=== PATIENT | female | born 1985 | race Caucasian/White ===

== ENCOUNTER 2017-03-30 06:36 | Day surgery (SDC) | payer MEDICAID ==
[~2017-03-30 06:36] MED LIST: ACETAMINOPHEN 1,000 MG/100 ML BTL IV ONE; FAMOTIDINE 20MG TABLET PO ONE; MECLIZINE 25 MG TABLET PO ONE; METOCLOPRAMIDE 10 MG TABLET PO ONE
[2017-03-30] MEDS ORDERED: KETOROLAC 30 MG/ML VIAL IVP ONE (14:27)
[2017-03-30] MEDS ORDERED: LIDOCAINE 2% MDV (20MG/ML) 20ML VIAL IV ONE (14:27)
[2017-03-30] MEDS ORDERED: HYDROCODONE/APAP 7.5/325MG TABLET PO ONE (14:27)
[2017-03-30] MEDS ORDERED: PROPOFOL 10 MG/ML VIAL IV ONE (14:27)
[2017-03-30] MEDS ORDERED: SEVOFLURANE 250 ML INH ONE (14:27)
[2017-03-30] MEDS ORDERED: HYDROMORPHONE HCL 2 MG/ML VIAL IV ONE (14:27)
--- NOTE | 2017-04-04 14:10 | Operative Note ---
DATE OF SURGERY: 03/30/2017 Surgeon: Da Vigil DO PREOPERATIVE DIAGNOSIS: Carpal tunnel syndrome of the right wrist. POSTOPERATIVE DIAGNOSIS: Carpal tunnel syndrome of the right wrist. OPERATION: Decompression of the right median nerve at the wrist using 3.5 loop magnification. DESCRIPTION OF PROCEDURE: This 31-year-old female was taken to the operating room, placed in the supine position on the operating room table where general anesthesia was induced. The right upper extremity was then elevated. It was prepped with Hibiclens and draped in the usual sterile fashion. Exsanguinated and the tourniquet inflated to 250 mmHg. A palmar incision was utilized following the hypothenar crease from the level of the base of the webspace of the thumb to the flexor crease of the wrist. Dissection carried down through the skin and subcutaneous tissue. Hemostasis was obtained with the electrocautery. The palmar fascia divided in line with the skin incision. The flexor retinaculum identified. There was a puncture and then split to its proximal margin. With the contents of the carpal tunnel under direct vision, the transverse carpal ligament was transected along its ulnar border and the radial flap was raised to expose the entire median nerve under the transverse carpal ligament. Recurrent motor branch of the median nerve was identified and found to be intact. Grossly, the nerve itself looked normal. The wound was irrigated. The tourniquet released. Hemostasis obtained with the electrocautery. The wound closed with interrupted 6-0 nylon suture. Sterile dressings were applied with plaster splint immobilization with the wrist in slight dorsiflexion and the thumb in an adducted position. CAROL
== END 2017-03-30 09:45 | disposition home or self-care (01) ==
LOC: SUR 06:36
PROVIDERS: ATTEND Orthopaedic Surgery
DX: G56.01 Carpal tunnel syndrome, right upper limb (principal); F17.200 Nicotine dependence, unspecified, uncomplicated; F41.8 Other specified anxiety disorders
CPT/HCPCS: 81025; 64721; 01810; J1885; J1170

== ENCOUNTER 2019-07-14 16:56 | Emergency (ER) | payer SELFPAY ==
[2019-07-14] MEDS ORDERED: TOPICAL LIDOCAINE W/ EPI 5 ML TOP ONE (17:05)
[2019-07-14] MEDS ORDERED: [UNRECOGNIZED DRUG - OTHER] IM ONE (17:05)
--- NOTE | 2019-07-14 17:11 | Emergency Department Record ---
History of Present Illness - General Chief Complaint: Laceration(s) Stated Complaint: LT WATTS LAC Time Seen by Provider: 07/14/19 16:59 Source: Patient Mode of Arrival: Ambulatory Limitations: No limitations - History of Present Illness Initial Commments: 33 yo female presents to ED for evaluation of a laceration to the left little finger tip that occurred while washing dishes this evening. Patient reports that a plate in the sink broke resulting in laceration to the finger tip, patient denies other injury and denies health problems at her baseline. Patient wrapped the digit in a towel prior to arrival to sop the bleeding. Patient reports that she is unsure of her last tetanus. Onset/Timin -: Minutes(s) Extremity Location: Left: Hand Place: Home Context: Accidental Associated Symptoms: None Treatments Prior to Arrival: Bandage - [place] Coma Scale Eye Response: (4) Open spontaneously Motor Response: (6) Obeys commands Verbal Response: (5) Oriented Rupa Total: 15 - Related Data Hx Tetanus Toxoid Vaccination: Yes Patient Tetanus UTD (within 5 yrs): No Allergies Allergy/AdvReac Type Severity Reaction Status Date / Time adhesive AdvReac Intermediate ITCHING Verified 07/14/19 17:08 chlorine Allergy Severe ASTHMA Uncoded 07/14/19 17:08 bandaides AdvReac Intermediate ITCHING Uncoded 07/14/19 17:08 Review of Systems Constitutional: Denies: Chills, Fever, Malaise, Night sweats Eyes: Denies: Eye discharge, Eye pain ENT: Denies: Congestion, Ear pain, Epistaxis Respiratory: Denies: Cough, Dyspnea Cardiovascular: Denies: Chest pain, Dyspnea on exertion Endocrine: Denies: Fatigue, Heat or cold intolerance Gastrointestinal: Denies: Abdominal pain, Nausea, Vomiting Genitourinary: Denies: Incontinence, Retention Musculoskeletal: Denies: Arthralgia, Back pain Skin: Reports: Other (Finger laceration). Denies: Bruising, Change in color Neurological: Denies: Abnormal gait, Confusion, Headache, Tingling, Tremors Psychiatric: Denies: Anxiety Hematological/Lymphatic: Denies: Anemia, Blood Clots Past Medical History - SOCIAL HISTORY Smoking Status: Light tobacco smoker (<10/day) - RESPIRATORY Hx Respiratory Disorders: Yes Hx Asthma: Yes (as child/ chlorine bothers airway) Hx Bronchitis: Yes (2 yrs ago) - CARDIOVASCULAR Hx Cardio Disorders: No - NEURO Hx Neuro Disorders: Yes Hx Headaches: Yes Hx of Migraines: Yes (on Propranolol) Hx Neuropathy: Yes (both hands carpal tunnel rt worse) Hx Weakness: Yes (rt hand due to cts) - GI Hx GI Disorders: Yes Hx Celiac Disease: No (no celiac, but does better without glutens) - Hx Genitourinary Disorders: Yes Comment:: LMP 2 yrs ago -on DEPOPROVERA - ENDOCRINE Hx Endocrine Disorders: No - MUSCULOSKELETAL Hx Musculoskeletal Disorders: Yes Hx Arthritis: Yes (knees) - PSYCH Hx Psych Problems: Yes Hx Anxiety: Yes Hx Depression: Yes - HEMATOLOGY/ONCOLOGY Hx Hematology/Oncology Disorders: No Family Medical History Hx Anxiety: Father Hx Cancer: Father Hx Dementia: Grandparents Hx Depression: Father Hx Diabetes: Father, Brother/Sister *Diabetes Comment: pre diabetic Hx HTN: Father, Grandparents Hx Resp Disorders: Grandparents Physical Exam - General General Appearance: Alert, Oriented x3, Cooperative, Mild distress Limitations: No limitations - Head Head exam: Atraumatic, Normocephalic, Normal inspection Head exam detail: negative: Abrasion, Contusion, Cheung's sign, General tender ness, Hematoma, Laceration - Eye Eye exam: Normal appearance. negative: Conjunctival injection, Periorbital swelling, Periorbital tenderness, Scleral icterus - ENT Ear exam: negative: Auricular hematoma, Auricular trauma Nasal Exam: negative: Active bleeding, Discharge, Dried blood, Foreign body Mouth exam: negative: Drooling, Laceration, Muffled voice, Tongue elevation - Neck Neck exam: Normal inspection. negative: Meningismus, Tenderness - Respiratory Respiratory exam: Normal lung sounds bilaterally. negative: Respiratory distress, Rhonchi, Stridor, Wheezes - Cardiovascular Cardiovascular Exam: Regular rate, Normal rhythm, Normal heart sounds - GI/Abdominal GI/Abdominal exam: Soft. negative: Distended, Rebound, Rigid, Tenderness - Rectal Rectal exam: Deferred - exam: Deferred - Extremities Extremities exam: Other (1.5 cm laceation involving the epidermis only of the left little digit, unable to suture due to the delicacy of the epidermis tissue, bleeding controlled.). negative: Calf tenderness, Pedal edema, Tenderness - Back Back exam: Denies: CVA tenderness (R), CVA tenderness (L) - Neurological Neurological exam: Alert, Normal gait, Oriented X3 - Psychiatric Psychiatric exam: Normal affect, Normal mood - Skin Skin exam: Normal color. negative: Abrasion Type of lesion: negative: abrasion Course - Reevaluation(s) Reevaluation #1: 07/14/19 17:26 Procedure Note: Wound was cleaned/prepped and anesthetized with TLE solution, no FB present on examination. Wound was then closed primarily with Dermabond solution without complications. Disposition Disposition: Discharge Clinical Impression: Finger laceration Qualifiers: Encounter type: initial encounter Finger: little finger Damage to nail status: without damage Foreign body presence: without foreign body Laterality: left Qualified Code(s): S61.217A - Laceration without foreign body of left little finger without damage to nail, initial encounter Disposition: Home, Self-Care Condition: (2) Stable Instructions: Skin Adhesive Care (ED) Additional Instructions: Return to ED if your symptoms worsen or if you have any concerns. Dermabond tissue with dissolve in 3-5 days. Follow-up with your family doctor in 5-7 days as directed. Forms: Patient Portal Access Time of Disposition: 17:11 Quality - Quality Measures Quality Measures: N/A - Blood Pressure Screening Does Patient Have Any of the Following: No Blood Pressure Classification: Hypertensive Reading Systolic Measurement: 169 Diastolic Measurement: 106 Screening for High Blood Pressure: < First Hypertensive BP, F/U Documented > [[id number]] First Hypertensive Follow-up Interventions: Referral to alternative/primary care provider.
[2019-07-14] MEDS ORDERED: TETANUS AND DIPHTHERIA PF 0.5 ML SYR IM ONE (17:16)
[2019-07-14] MEDS ORDERED: Diph,Pert(Acell),Tet Vac 0.5 ML SYR IM ONE (17:25)
== END 2019-07-14 17:41 | disposition home or self-care (01) ==
LOC: ER 16:56
DX: S61.217A Laceration without foreign body of left little finger without damage to nail, initial encounter (principal); W25.XXXA Contact with sharp glass, initial encounter; Y92.009 Unspecified place in unspecified non-institutional (private) residence as the place of occurrence of the external cause; F17.210 Nicotine dependence, cigarettes, uncomplicated
CPT/HCPCS: 90715; 96372; 99283